=== PATIENT | female | born 1960 | race Two or more races ===

== ENCOUNTER 2025-02-18 10:33 | Emergency (ER) | payer OTHER ==
[~2025-02-18] VITALS: Ht 152.4 cm; Wt 70.3 kg
[2025-02-18] MEDS ORDERED: ZESTRIL10 M1 PO (10:53)
[2025-02-18] MEDS ORDERED: NORVASC5 MG PO (10:53)
[2025-02-18] MEDS ORDERED: SYNTHROID50 MCG PO (10:54)
[2025-02-18] MEDS ORDERED: FAMOtidine 10 MG/ML (4ML VIAL) IV ONE (11:00)
[2025-02-18] MEDS ORDERED: KETOROLAC TROMETHAMINE 30 MG VIAL IV ONE (11:00)
[2025-02-18] MEDS ORDERED: 0.9 % SODIUM CHLORIDE 1,000 ML IV ONE (11:00)
[2025-02-18 12:22] LABS: BASO % 0.8 % (0.1-1.2); EOS # 0.17 (0.04-0.54); EOS % 2.3 % (0.7-7.0); LYMPH # 1.94 (1.18-3.74); LYMPH % 26.4 % (19.3-53.1); MEAN PLATELET VOLUME 10.20 fl (9.4-12.4); MONO # 0.25 (0.24-0.82); MONO % 3.4 % (4.7-12.5); NEUT # 4.90 (1.56-6.13); NEUT % 66.8 % (34.0-71.1); RED CELL DISTRIBUTION WIDTH 15.1 % (11.6-14.4)
[2025-02-18 12:39] LABS: INR 0.97
[2025-02-18 12:43] LABS: ALT/SGPT 30.0 U/L (12-78); AST/SGOT 15.0 U/L (15-37); BILIRUBIN TOTAL 0.34 mg/dL (0.3-1.2); BUN CREA RATIO 32.0 (7.0-25.0); CREATININE SERUM 0.56 mg/dL (0.55-1.02); GFR 108.99; GLOBULINA 4.2 G/DL (2.4-3.5); GLUCOSE FASTING 90.0 mg/dL (65-100); OSMOLALITY SERUM 285.0 MOSM/KG (275-295)
[2025-02-18 13:35] LABS: URINE APPEARANCE Clear; URINE BILIRRUBIN Negative (NEGATIVE); URINE BLOOD Negative; URINE COLOR Yellow; URINE GLUCOSE Negative (NEGATIVE); URINE KETONE Negative (NEGATIVE); URINE LEUKOCYTE Trace; URINE NITRATE Negative; URINE PROTEIN Negative (NEGATIVE); URINE UROBILINOGEN 0.2 E.U./dl
[2025-02-18 13:39] LABS: URINE BACTERIA 53.9 uL (0.0-1933); URINE EPITHELIAL CELLS 21.0 uL (0.0-38.8); URINE RBC 8.7 uL (0.0-20.8); URINE WBC 17.5 uL (0.0-23.2)
[2025-02-18 13:50] LABS: URINE CAST 0.14 uL (0.0-1.40)
[2025-02-18 13:51] LABS: TYPE CELLS SQUAMOUS
[2025-02-18] MEDS ORDERED: CEFTRIAXONE SODIUM 1,000 MG VIAL IV ONE (15:30)
[2025-02-18] MEDS ORDERED: MACROBID 100 M100 MG PO (20:07)
== END 2025-02-18 20:18 | disposition home or self-care (01) ==
LOC: ER 10:33
PROVIDERS: General Practice
DX: R10.32 Left lower quadrant pain (principal); R10.9 Unspecified abdominal pain; I10 Essential (primary) hypertension; E03.8 Other specified hypothyroidism
CPT/HCPCS: 36415; 74177; 96365; 96366; 99284; J0696; J1885; J3490; J7030; Q9965